=== PATIENT | female | born 1935 | race Caucasian/White ===

== ENCOUNTER 2017-09-07 21:39 | Emergency (ER) | payer MEDICARE ==
[~2017-09-07] VITALS: Ht 152.4 cm; Wt 74.4 kg
[~2017-09-07 21:39] MED LIST: AMOX1TAB11 PO; ATOR40TA59 PO; LEVO500T8 PO; METO50TA2 PO; OMEP40CA5 PO; PROAIR HFA8.5 GM IH
[2017-09-07 22:49] LABS: BASO # 0.1 x10^3/uL (0.0-0.2); BASO % 1 % (0-3); EOS % 2 % (0-3); HEMOGLOBIN 12.8 g/dL (12.0-15.5); LYMPH # 3.7 x10^3/uL (1.0-4.8); LYMPH % 38 % (24-48); MEAN CORPUSCULAR HEMOGLOBIN 28 pg (25-35); MEAN CORPUSCULAR HGB CONC 33 g/dL (31-37); MEAN CORPUSCULAR VOLUME 85 fL (79-100); MONO % 9 % (0-9); NEUT % 51 % (31-73); PLATELET COUNT 354 x10^3/uL (140-400); RED BLOOD COUNT 4.59 x10^6/uL (3.50-5.40); RED CELL DISTRIBUTION WIDTH 15.8 % (11.5-14.5); WHITE BLOOD COUNT 9.8 x10^3/uL (4.0-11.0)
[2017-09-07 23:07] LABS: CALCIUM 9.5 mg/dL (8.5-10.1); CREATININE 0.8 mg/dL (0.6-1.0); GFR 68.3
[2017-09-07 23:12] LABS: ALBUMIN 3.6 g/dL (3.4-5.0); ALBUMIN/GLOBULIN RATIO 0.9 (1.0-1.7); TOTAL BILIRUBIN 0.3 mg/dL (0.2-1.0); TOTAL PROTEIN 7.4 g/dL (6.4-8.2)
--- NOTE | 2017-09-08 00:12 | PHYS DOC ---
Past Medical History Past Medical History: GERD, High Cholesterol, Hypertension, Other Additional Past Medical Histor: mtv prolapse, melanoma Past Surgical History: Other Additional Past Surgical Histo: cataract, skin ca, hernia, polypectomy Alcohol Use: None Drug Use: None Adult General Chief Complaint Chief Complaint: HYPERTENSION HPI HPI Patient is a 82 year old female with history significant for hypertension presents to the ER today secondary to not feeling well. Patient reports that she hasn't been feeling well for approximately 4-5 days now. Patient reports that she's had headache, nausea, generalized weakness, decreased appetite for approximate 4 days now. Patient reports that she is supposed to be on metoprolol as well as losartan. Patient reports that she is not taking her losartan several month ago and her blood pressure reports he has been normal. After not feeling well the patient checked her blood pressure and she reports it was 210/100. At that point she came to the ER for further evaluation. Patient has any fevers shakes chills vomiting diarrhea chest pain shortness of breath. Patient has any weakness to her upper or lower extremity. Patient has any double or blurred vision. Patient has no focal symptoms at this time. Physical Exam Review of systems: Constitutional: Denies fever or chills Eyes: Denies change in visual acuity, redness, or eye pain HENT: Denies nasal congestion or sore throat Respiratory: Denies cough or shortness of breath All other systems were reviewed and found to be within normal limits, except as documented in this note. Physical exam: Constitutional: Well developed, well nourished, no acute distress, non-toxic appearance. HENT: Normocephalic, atraumatic, bilateral external ears normal, oropharynx moist, no oral exudates, nose normal. Eyes: PERRLA, EOMI, conjunctiva normal, no discharge. Neck: Normal range of motion, no tenderness, supple, no stridor. Cardiovascular:Heart rate regular rhythm, Lungs & Thorax: Bilateral breath sounds clear to auscultation Abdomen: Bowel sounds normal, soft, no tenderness, no masses, no pulsatile masses. Skin: Warm, dry, no erythema, no rash. Back: No tenderness, no CVA tenderness. Extremities: No tenderness, no cyanosis, no clubbing, ROM intact, no edema. Neurologic: Alert and oriented X 3, normal motor function, normal sensory function, no focal deficits noted. Psychologic: Affect normal, judgement normal, mood normal. Assessment and plan: This is an 82-year-old female who presents to the ER today secondary to an elevated blood pressure all she was at home. Patient reports she checked her blood pressure patient wasn't feeling well for approximately 3 or 4 days. Of note patient has been noncompliant with her losartan for several month now. Patient reports that her doctor started her on losartan secondary to her blood pressure being elevated. Patient reports that she did losartan for several month her blood pressure improved to she stopped taking. Patient reports after not taking her losartan her blood pressure has been stable for several months. Patient presents here today secondary to an elevated blood pressure of 210 or 100 home which she checked secondary to multiple vague symptoms including nausea , generalized weakness, headaches, decreased appetite. Patient's ER workup so far has been unremarkable. Patient's blood pressure currently is 200/84. Patient has taken her to losartan at home or any. Patient will be given her evening dose of metoprolol as well as dose of clonidine and will be discharged home to follow-up with her primary care physician on Monday to repeat her blood pressure and manage her medications further. Patient was instructed to return to the ER if she starts developing any chest pain, localized weakness, or any other concerning signs or symptoms. Patient currently reports that she feels well and feels reassured with the workup that we have done currently is requesting to be discharged home and feels comfortable with our plan as discussed. Current Medications Current Medications Current Medications Medications (Trade) Dose Ordered Sig/Ramona Start Time Stop Time Status Last Admin Dose Admin Clonidine HCl (Catapres) 0.1 mg 1X ONCE 09/08/17 00:15 09/08/17 00:16 DC Metoprolol Tartrate (Lopressor) 100 mg 1X ONCE 09/08/17 00:15 09/08/17 00:16 DC Allergies Allergies Allergies Coded Allergies Type Severity Reaction Last Updated Verified Sulfa (Sulfonamide Antibiotics) Allergy Unknown 09/07/17 Yes cyclobenzaprine Allergy Unknown 09/07/17 Yes meperidine Allergy Unknown 09/07/17 Yes morphine Allergy Unknown 09/07/17 Yes pregabalin Allergy Unknown 09/07/17 Yes Current Patient Data Vital Signs Vital Signs Date Time Temp Pulse Resp B/P (MAP) Pulse Ox O2 Delivery O2 Flow Rate FiO2 11/16/17 22:03 84 20 220/98 (138) 99 Room Air Lab Values Laboratory Tests Test 09/07/17 22:15 White Blood Count 9.8 x10^3/uL (4.0-11.0) Red Blood Count 4.59 x10^6/uL (3.50-5.40) Hemoglobin 12.8 g/dL (12.0-15.5) Hematocrit 39.0 % (36.0-47.0) Mean Corpuscular Volume 85 fL (79-100) Mean Corpuscular Hemoglobin 28 pg (25-35) Mean Corpuscular Hemoglobin Concent 33 g/dL (31-37) Red Cell Distribution Width 15.8 % (11.5-14.5) H Platelet Count 354 x10^3/uL (140-400) Neutrophils (%) (Auto) 51 % (31-73) Lymphocytes (%) (Auto) 38 % (24-48) Monocytes (%) (Auto) 9 % (0-9) Eosinophils (%) (Auto) 2 % (0-3) Basophils (%) (Auto) 1 % (0-3) Neutrophils # (Auto) 5.0 x10^3uL (1.8-7.7) Lymphocytes # (Auto) 3.7 x10^3/uL (1.0-4.8) Monocytes # (Auto) 0.9 x10^3/uL (0.0-1.1) Eosinophils # (Auto) 0.2 x10^3/uL (0.0-0.7) Basophils # (Auto) 0.1 x10^3/uL (0.0-0.2) Sodium Level 137 mmol/L (136-145) Potassium Level 4.0 mmol/L (3.5-5.1) Chloride Level 100 mmol/L (98-107) Carbon Dioxide Level 29 mmol/L (21-32) Anion Gap 8 (6-14) Blood Urea Nitrogen 10 mg/dL (7-20) Creatinine 0.8 mg/dL (0.6-1.0) Estimated GFR (Cockcroft-Gault) 68.3 BUN/Creatinine Ratio 13 (6-20) Glucose Level 109 mg/dL (70-99) H Calcium Level 9.5 mg/dL (8.5-10.1) Total Bilirubin 0.3 mg/dL (0.2-1.0) Aspartate Amino Transferase (AST) 19 U/L (15-37) Alanine Aminotransferase (ALT) 21 U/L (14-59) Alkaline Phosphatase 93 U/L (46-116) Troponin I Quantitative < 0.017 ng/mL (0.000-0.055) Total Protein 7.4 g/dL (6.4-8.2) Albumin 3.6 g/dL (3.4-5.0) Albumin/Globulin Ratio 0.9 (1.0-1.7) L Laboratory Tests 09/07/17 22:15 Laboratory Tests 09/07/17 22:15 EKG EKG [] Radiology/Procedures Radiology/Procedures [] Course & Med Decision Making Course & Med Decision Making Pertinent Labs and Imaging studies reviewed. (See chart for details) [] Dragon Disclaimer Dragon Disclaimer This electronic medical record was generated, in whole or in part, using a voice recognition dictation system. Departure Departure Impression: Primary Impression: Hypertension Disposition: 01 HOME, SELF-CARE Condition: IMPROVED Referrals: DAYDAY EAST MD (PCP) Patient Instructions: Hypertension Additional Instructions: Please take all your blood pressure medicines as directed. Please make an appointment to see her family doctor on Monday or Monday to reevaluate your blood pressure medications. Return the ER for any further problems or concerns. JEWELS AGUILAR MD Sep 08, 2017 00:12
[2017-09-08] MEDS ORDERED: METOPROLOL TART IMMED RELEASE 50 MG TABLET. PO ONE (00:15)
[2017-09-08] MEDS ORDERED: cloNIDine HCL 0.1 MG TABLET PO ONE (00:15)
[2017-09-08 00:23] VITALS: BP 207/85
--- NOTE | 2017-09-08 06:36 | EKG ---
[facility] [address] [place] [address] Test Date: 2017-09-07 Test Time: 22:35:41 Pat Name: ARMANDO NIELSON Department: Room: Gender: F Manager Creative: : 1935 Requested By: JEWELS AGUILAR Order Number: [id number] Reading MD: Juan Carbajal MD Measurements Intervals [place] Rate: 81 P: 39 MN: 158 QRS: -21 QRSD: 78 T: 17 QT: 380 QTc: 447 Interpretive Statements SINUS RHYTHM Electronically Signed On 09-11-2017 14:10:50 ZOO CARETAKER by Juan Carbajal MD
--- NOTE | 2017-09-08 07:55 | RAD ---
AP chest radiograph 09/07/2017 Clinical indication: Hypertension, dizziness. Comparison: Chest 04/26/2013 Findings: Heart size is upper limits of normal without pulmonary venous congestion. Calcified atheromatous disease of the thoracic aorta. Mild linear left basilar atelectasis or scarring. No pleural effusion, pneumothorax or focal consolidation. Impression: Heart size upper limits of normal without pulmonary edema or consolidating pneumonia.
== END 2017-09-08 00:52 | disposition home or self-care (01) ==
LOC: ER 21:39
DX: I10 Essential (primary) hypertension (principal); R53.1 Weakness; R63.0 Anorexia; K21.9 Gastro-esophageal reflux disease without esophagitis; E78.00 Pure hypercholesterolemia, unspecified; Z98.49 Cataract extraction status, unspecified eye; Z68.32 Body mass index [BMI] 32.0-32.9, adult; Z79.899 Other long term (current) drug therapy; Z91.19 Patient's noncompliance with other medical treatment and regimen; Z88.2 Allergy status to sulfonamides; Z88.8 Allergy status to other drugs, medicaments and biological substances; Z88.5 Allergy status to narcotic agent
CPT/HCPCS: 36415; 71010; 80053; 84484; 85025; 93005; 99285-25

== ENCOUNTER 2019-12-08 22:10 | Inpatient (IN) | payer MEDICARE ==
[~2019-12-08] VITALS: Ht 157.5 cm; Wt 70.4 kg
[~2019-12-08 22:10] MED LIST changes: +ALBU2.5V8 IH; -METO50TA2 PO; +METO50TA6 PO; +OMEP40CA45 PO; -OMEP40CA5 PO; -PROAIR HFA8.5 GM IH
[2019-12-09 00:49] LABS: BILIRUBIN,URINE NEGATIVE (NEG); CLARITY,URINE CLEAR; COLOR,URINE YELLOW; NITRITE,URINE NEGATIVE (NEG); PROTEIN,URINE NEGATIVE (NEG-TRACE); UROBILINOGEN,URINE 0.2 mg/dL (0.2 mg/dL)
[2019-12-09 00:51] LABS: BASO % 0 % (0-3); EOS % 0 % (0-3); HEMATOCRIT 39.4 % (36.0-47.0); HEMOGLOBIN 13.3 g/dL (12.0-15.5); LYMPH # 1.6 x10^3/uL (1.0-4.8); LYMPH % 19 % (24-48); MEAN CORPUSCULAR HEMOGLOBIN 28 pg (25-35); MEAN CORPUSCULAR HGB CONC 34 g/dL (31-37); MEAN CORPUSCULAR VOLUME 83 fL (79-100); MONO # 0.7 x10^3/uL (0.0-1.1); MONO % 8 % (0-9); NEUT # 6.2 x10^3/uL (1.8-7.7); NEUT % 73 % (31-73); PLATELET COUNT 278 x10^3/uL (140-400); RED BLOOD COUNT 4.77 x10^6/uL (3.50-5.40); RED CELL DISTRIBUTION WIDTH 15.1 % (11.5-14.5); WHITE BLOOD COUNT 8.5 x10^3/uL (4.0-11.0)
[2019-12-09 00:53] LABS: BACTERIA,URINE 0 /HPF (0-FEW); SQUAMOUS EPITHELIAL CELL,UR FEW /LPF; WBC,URINE 0 /HPF (0-4)
[2019-12-09] MEDS ORDERED: IPRATRPIUM/ALBUTEROL 0.5/2.5MG 3 ML NEBU. NEB ONE ×2 (01:00)
[2019-12-09 01:07] LABS: CREATININE 0.6 mg/dL (0.6-1.0); GFR 94.8; POTASSIUM 3.5 mmol/L (3.5-5.1)
[2019-12-09 01:13] LABS: ALBUMIN 3.3 g/dL (3.4-5.0); ALBUMIN/GLOBULIN RATIO 0.8 (1.0-1.7); TOTAL BILIRUBIN 0.4 mg/dL (0.2-1.0); TOTAL PROTEIN 7.6 g/dL (6.4-8.2)
--- NOTE | 2019-12-09 01:41 | EKG ---
[facility] [address] [place] [address] Test Date: 2019-12-09 Test Time: 01:00:39 Pat Name: ARMANDO NIELSON Department: Room: Gender: F Spectroscopist: : 1935 Requested By: LUANN FERNANDEZ Order Number: [id number] Reading MD: Measurements Intervals [place] Rate: 106 P: 90 NE: 158 QRS: -30 QRSD: 74 T: 6 QT: 384 QTc: 512 Interpretive Statements SINUS TACHYCARDIA VENTRICULAR PREMATURE COMPLEX(ES) ABNORMAL LEFT AXIS DEVIATION R-S TRANSITION ZONE IN V LEADS DISPLACED TO THE LEFT LEFT ANTERIOR FASCICULAR BLOCK ABNORMAL ECG RI6.01 No previous ECG available for comparison
[2019-12-09] MEDS ORDERED: ONDANSETRON PF 4 MG/2 ML VIAL. IVP ONE (02:00)
--- NOTE | 2019-12-09 02:18 | PHYS DOC ---
Past Medical History Past Medical History: Hypertension Additional Past Medical Histor: hyperlipidemia, mitral valve prolapse Past Surgical History: Cholecystectomy Additional Past Surgical Histo: hernia repair Smoking Status: Never Smoker Alcohol Use: None Drug Use: None Adult General Chief Complaint Chief Complaint: SHORTNESS OF BREATH HPI HPI 84 yo female presents to the ER with complaints of SOB/cough/wheeze. Patient states she was seen by PCP on Monday, provided mucinex and antihistamine. She states she was then seen on 2/ continued symptoms. Patient states she felt worse at that time she was seen in urgent care and diagnosed with the flu. She's been on Tamiflu since that time. She describes increased cough, clear sputum production. Denies any diarrhea or vomiting however has had nausea. She states she's been able take oral intake however less of an appetite. She presents tonight given her continued symptoms, shortness of breath, wheeze. Nothing makes her symptoms worse, nothing makes her symptoms better. Review of Systems Review of Systems Constitutional: chills HENT: cough/SOB Cardiovascular: No additional information not addressed in HPI [] GI: Denies abdominal pain, + nausea, no vomiting, bloody stools or diarrhea [] Musculoskeletal: Denies back pain or joint pain [] Integument: Denies rash or skin lesions [] Neurologic: Denies headache, focal weakness or sensory changes [] All other systems were reviewed and found to be within normal limits, except as documented in this note. Current Medications Current Medications Current Medications Medications (Trade) Dose Ordered Sig/Ramona Start Time Stop Time Status Last Admin Dose Admin Albuterol/ Ipratropium (Duoneb) 3 ml 1X ONCE 12/09/19 01:00 12/09/19 01:01 DC 12/09/19 00:49 3 ML Levofloxacin/ Dextrose 150 ml @ 100 mls/hr 1X ONCE 12/09/19 02:00 12/09/19 03:29 12/09/19 01:44 100 MLS/HR Ondansetron HCl (Zofran) 4 mg 1X ONCE 12/09/19 02:00 12/09/19 02:01 DC 12/09/19 01:44 4 MG Allergies Allergies Allergies Coded Allergies Type Severity Reaction Last Updated Verified Sulfa (Sulfonamide Antibiotics) Allergy Intermediate 12/09/19 Yes cyclobenzaprine Allergy Intermediate 12/09/19 Yes meperidine Allergy Intermediate 12/09/19 Yes morphine Allergy Intermediate 12/09/19 Yes pregabalin Allergy Intermediate 12/09/19 Yes Physical Exam Physical Exam Constitutional: Well developed, well nourished, mild resp distress, non-toxic appearance. [] Neck: Normal range of motion, no tenderness, supple, no stridor. [] Cardiovascular: Tachycardia Lungs & Thorax: Coarse BS, exp wheeze Abdomen: Bowel sounds normal, soft, no tenderness, no masses, no pulsatile masses. [] Skin: Warm, dry, no erythema, no rash. [] Back: No tenderness, no CVA tenderness. [] Extremities: No tenderness, no edema. [] Neurologic: Alert and oriented X 3, no focal deficits noted. [] Psychologic: Affect normal, judgement normal, mood normal. [] Current Patient Data Vital Signs Vital Signs Date Time Temp Pulse Resp B/P (MAP) Pulse Ox O2 Delivery O2 Flow Rate FiO2 12/09/19 00:49 96 Room Air 12/08/19 23:37 98.7 94 16 218/95 (136) 98.7 Lab Values Laboratory Tests Test 12/08/19 23:40 12/09/19 00:35 White Blood Count 8.5 x10^3/uL (4.0-11.0) Red Blood Count 4.77 x10^6/uL (3.50-5.40) Hemoglobin 13.3 g/dL (12.0-15.5) Hematocrit 39.4 % (36.0-47.0) Mean Corpuscular Volume 83 fL (79-100) Mean Corpuscular Hemoglobin 28 pg (25-35) Mean Corpuscular Hemoglobin Concent 34 g/dL (31-37) Red Cell Distribution Width 15.1 % (11.5-14.5) H Platelet Count 278 x10^3/uL (140-400) Neutrophils (%) (Auto) 73 % (31-73) Lymphocytes (%) (Auto) 19 % (24-48) L Monocytes (%) (Auto) 8 % (0-9) Eosinophils (%) (Auto) 0 % (0-3) Basophils (%) (Auto) 0 % (0-3) Neutrophils # (Auto) 6.2 x10^3/uL (1.8-7.7) Lymphocytes # (Auto) 1.6 x10^3/uL (1.0-4.8) Monocytes # (Auto) 0.7 x10^3/uL (0.0-1.1) Eosinophils # (Auto) 0.0 x10^3/uL (0.0-0.7) Basophils # (Auto) 0.0 x10^3/uL (0.0-0.2) Sodium Level 132 mmol/L (136-145) L Potassium Level 3.5 mmol/L (3.5-5.1) Chloride Level 97 mmol/L (98-107) L Carbon Dioxide Level 27 mmol/L (21-32) Anion Gap 8 (6-14) Blood Urea Nitrogen 5 mg/dL (7-20) L Creatinine 0.6 mg/dL (0.6-1.0) Estimated GFR (Cockcroft-Gault) 94.8 BUN/Creatinine Ratio 8 (6-20) Glucose Level 125 mg/dL (70-99) H Lactic Acid Level 0.9 mmol/L (0.4-2.0) Calcium Level 9.0 mg/dL (8.5-10.1) Total Bilirubin 0.4 mg/dL (0.2-1.0) Aspartate Amino Transferase (AST) 23 U/L (15-37) Alanine Aminotransferase (ALT) 31 U/L (14-59) Alkaline Phosphatase 71 U/L (46-116) Troponin I Quantitative < 0.017 ng/mL (0.000-0.055) FU-Mjg-I-Type Natriuretic Peptide 424 pg/mL (0-449) Total Protein 7.6 g/dL (6.4-8.2) Albumin 3.3 g/dL (3.4-5.0) L Albumin/Globulin Ratio 0.8 (1.0-1.7) L Urine Collection Type Unknown Urine Color Yellow Urine Clarity Clear Urine pH 7.0 Urine Specific [place] 1.010 Urine Protein Negative mg/dL (NEG-TRACE) Urine Glucose (UA) Negative mg/dL (NEG) Urine Ketones (Stick) 15 mg/dL (NEG) Urine Blood Negative (NEG) Urine Nitrite Negative (NEG) Urine Bilirubin Negative (NEG) Urine Urobilinogen Dipstick 0.2 mg/dL (0.2 mg/dL) Urine Leukocyte Esterase Negative (NEG) Urine RBC 1-2 /HPF (0-2) Urine WBC 0 /HPF (0-4) Urine Squamous Epithelial Cells Few /LPF Urine Bacteria 0 /HPF (0-FEW) Urine Mucus Slight /LPF Laboratory Tests 12/08/19 23:40 Laboratory Tests 12/08/19 23:40 EKG EKG [] Radiology/Procedures Radiology/Procedures Chest wet read with evidence of right lower lobe consolidation[] Course & Med Decision Making Course & Med Decision Making Pertinent Labs and Imaging studies reviewed. (See chart for details) []84 yo female presents to the ER with complaints of SOB/cough/wheeze. Patient states she was seen by PCP on Monday, provided mucinex and antihistamine. She states she was then seen on 11/24 continued symptoms. Patient states she felt worse at that time she was seen in urgent care and diagnosed with the flu. She's been on Tamiflu since that time. She describes increased cough, clear sputum production. Denies any diarrhea or vomiting however has had nausea. She states she's been able take oral intake however less of an appetite. She presents tonight given her continued symptoms, shortness of breath, wheeze. Nothing makes her symptoms worse, nothing makes her symptoms better. Arrival patient with tachycardia, expiratory wheeze, coarse breath sounds appreciated throughout. Patient provided with IV fluids, DuoNeb with some improvement. Patient with improvement in wheeze however did have oxygen dip to 88% at rest requiring O2 supplementation Levaquin IV provided cultures obtained - lactic acid within normal limits Admit for observation Dragon Disclaimer Dragon Disclaimer This electronic medical record was generated, in whole or in part, using a voice recognition dictation system. Departure Departure Impression: Primary Impression: CAP (community acquired pneumonia) Additional Impression: Hypoxia Disposition: ADMITTED INPATIENT Admitting Physician: PERFECTO Condition: STABLE Referrals: DAYDAY EAST MD (PCP) Problem Qualifiers Primary Impression: CAP (community acquired pneumonia) Laterality: right Lung location: lower lobe of lung Qualified Codes: J18.9 - Pneumonia, unspecified organism LUANN FERNANDEZ MD Dec 09, 2019 02:18
[2019-12-09] MEDS ORDERED: ACETAMINOPHEN 325 MG TABLET. PO PRN ×2 (02:30→08:30)
[2019-12-09] MEDS ORDERED: ONDANSETRON PF 4 MG/2 ML VIAL. IV PRN ×2 (02:30→08:30)
--- NOTE | 2019-12-09 08:19 | RAD ---
EXAM: PORTABLE CHEST 1V INDICATION: Chest pain. TECHNIQUE: Single portable upright AP view COMPARISON: 09/07/2017 chest x-ray FINDINGS: The heart size is upper normal.. The great vessels appear unremarkable. There is no hilar or mediastinal mass. The lungs show mild prominence of the pulmonary interstitium with borderline cephalization of the vessels.. There is no pleural effusion or pneumothorax. There are no significant osseous abnormalities. IMPRESSION: Upper normal heart size with mild pulmonary vascular congestion. Electronically signed by: Tyesha Cabrera MD (12/09/2019 8:16 AM) [id number]
[2019-12-09] MEDS ORDERED: ZOLPIDEM 5 MG TABLET. PO PRN (08:30)
[2019-12-09] MEDS ORDERED: ALBUTEROL SULFATE 2.5 MG/3 ML NEBU. INH SCH (08:30)
[2019-12-09] MEDS ORDERED: guaiFENesin ORAL 200 MG/10 ML LIQUID. PO PRN (08:30)
[2019-12-09] MEDS ORDERED: LORazepam 0.5 MG TABLET PO PRN (08:30)
[2019-12-09] MEDS ORDERED: ALBUTEROL SULFATE 2.5 MG/3 ML NEBU. NEB PRN (08:30)
[2019-12-09] MEDS: IPRATRPIUM/ALBUTEROL 0.5/2.5MG 3 ML NEBU. NEB SCH ×4 (08:35→20:16)
[2019-12-09] MEDS: PANTOPRAZOLE 40 MG TABLET.DR. PO SCH (09:49)
[2019-12-09] MEDS: METOPROLOL TART IMMED RELEASE 50 MG TABLET. PO SCH ×2 (09:49→20:15)
[2019-12-09] MEDS: IV NORMAL SALINE 1000ML BAG 1,000 ML IV SCH ×2 (09:55→18:27)
[2019-12-09] MEDS: ALBUTEROL SULFATE 2.5 MG/3 ML NEBU. INH SCH ×4 (12:00→22:52)
[2019-12-09] MEDS: ENOXAPARIN 40 MG/0.4 ML SYRINGE. SQ SCH (14:33)
[2019-12-09 15:20] VITALS: BP 172/64
--- NOTE | 2019-12-09 16:32 | PDOC1 ---
History and Physical Date of Admission Date of Admission 12/09/2019 Identification/Chief Complaint Chief Complaint I dont feel well Source Source: Chart review, Patient History of Present Illness History of Present Illness Patient is an 84-year-old female with past medical history of essential hypertension dyslipidemia and mitral valve prolapse who was seen in an out patient setting last Monday. The patient thought that she was having the flu nevertheless her physician attributed her symptoms to allergies and provided these next an antihistamine medications. Later that week on she saw another urgent care and she was tested for the flu when she became positive. She was given a course of Tamiflu but unfortunately the patient continues to have cough clear sputum production no pleurisy has been reported no fever or chills were reported either she denies any diarrhea no syncopal episodes no headache generalized malaise is better according to the patient, she has had decreased appetite and decreased oral intake as a consequence of her acute illness. Due to the continued symptoms she decided to come to the emergency department due to shortness of breath and she thought she was wheezing as well. I have discussed the results of her current testing, according to the patient she was told she had pneumonia but I have reassured her that there is no evidence on x-ray of a pneumonic process in given her history most likely she is suffering from a post viral syndrome with continued cough and discomfort. Reassurance has been provided plan of care explaining detail all of her concerns were addressed to the best of my abilities Past Medical History Cardiovascular: HTN, Hyperlipidemia Current Problem List Problem List Problems Medical Problems: (1) CAP (community acquired pneumonia) Status: Acute (2) Hypoxia Status: Acute Current Medications Current Medications Current Medications Medications (Trade) Dose Ordered Sig/Ramona Start Time Stop Time Status Last Admin Dose Admin Acetaminophen (Tylenol) 650 mg PRN Q4HRS PRN 12/09/19 08:30 Albuterol Sulfate (Ventolin Neb Soln) 8.5 mg Q4HRS 12/09/19 12:00 Albuterol/ Ipratropium (Duoneb) 3 ml RTQID 12/09/19 08:00 12/10/19 07:59 12/09/19 12:31 3 ML Atorvastatin Calcium (Lipitor) 40 mg QHS 12/09/19 21:00 Enoxaparin Sodium (Lovenox 40mg Syringe) 40 mg Q24H 12/09/19 14:00 12/09/19 14:33 40 MG Guaifenesin (Mucinex) 600 mg BID 12/09/19 09:00 12/09/19 09:49 600 MG Guaifenesin (Robitussin) 200 mg PRN Q4HRS PRN 12/09/19 08:30 Levofloxacin/ Dextrose 150 ml @ 100 mls/hr 1X ONCE 12/09/19 02:00 12/09/19 03:29 DC 12/09/19 01:44 100 MLS/HR Lorazepam (Ativan) 0.5 mg PRN Q4HRS PRN 12/09/19 08:30 Metoprolol Tartrate (Lopressor) 50 mg BID 12/09/19 09:00 12/09/19 09:49 50 MG Ondansetron HCl (Zofran) 4 mg PRN Q4HRS PRN 12/09/19 08:30 Pantoprazole Sodium (Protonix) 40 mg DAILYAC 12/09/19 09:00 12/09/19 09:49 40 MG Sodium Chloride 1,000 ml @ 100 mls/hr Q10H 12/09/19 08:27 12/10/19 04:26 12/09/19 09:55 100 MLS/HR Zolpidem Tartrate (Ambien) 5 mg PRN QHS PRN 12/09/19 08:30 Allergies Allergies Allergies Coded Allergies Type Severity Reaction Last Updated Verified Sulfa (Sulfonamide Antibiotics) Allergy Intermediate 12/09/19 Yes cyclobenzaprine Allergy Intermediate 12/09/19 Yes meperidine Allergy Intermediate 12/09/19 Yes morphine Allergy Intermediate 12/09/19 Yes pregabalin Allergy Intermediate 12/09/19 Yes ROS Review of System CONSTITUTIONAL: No fever or chills EYES: No recent changes SKIN: No rash or itching CARDIOVASCULAR: No chest pain, syncope, palpitations, or edema RESPIRATORY: No SOB or cough GASTROINTESTINAL: No nausea, vomiting or abdominal pain NEUROLOGICAL: No headaches or weakness ENDOCRINE: No cold or heat intolerance GENITOURINARY: No urgency or frequency of urination MUSCULOSKELETAL: No back pain or joint pain LYMPHATICS: No enlarged lymph nodes PSYCHIATRIC: No anxiety or depression Physical Exam Physical Exam Gen.: well-developed well-nourished in no apparent distress Head: Normal shape atraumatic Eyes: Pupils equal reactive to light and accommodation, normal conjunctivae and lids Ears: Normal shape Nose: Normal shape no trauma Mouth: No exudates of the back of throat no thrush no lesions Neck: Supple no JVD no carotid bruit or lymphadenopathy no thyromegaly Chest: Lungs clear to auscultation with good inspiratory effort no crackles rales or rhonchi Cardiovascular: S1-S2 regular rhythm 2/6 systolic murmur with no radiation no gallops or rubs Abdomen: Bowel sounds present soft nontender no hepatosplenomegaly appreciated sign Extremities: No clubbing no cyanosis no edema peripheral pulses palpated bilaterally Neurological: Alert awake oriented in person time place and situation, cranial nerves II through XII intact, no motor or sensory deficits appreciated Psych: Appropriate mood, cooperative Vitals Vitals Vital Signs Date Time Temp Pulse Resp B/P (MAP) Pulse Ox O2 Delivery O2 Flow Rate FiO2 12/09/19 15:20 98.2 89 172/64 (100) 95 Room Air 98.2 12/09/19 12:33 2.0 12/09/19 11:13 16 Labs Labs Laboratory Tests Test 12/08/19 23:40 12/09/19 00:35 White Blood Count 8.5 x10^3/uL (4.0-11.0) Red Blood Count 4.77 x10^6/uL (3.50-5.40) Hemoglobin 13.3 g/dL (12.0-15.5) Hematocrit 39.4 % (36.0-47.0) Mean Corpuscular Volume 83 fL (79-100) Mean Corpuscular Hemoglobin 28 pg (25-35) Mean Corpuscular Hemoglobin Concent 34 g/dL (31-37) Red Cell Distribution Width 15.1 % (11.5-14.5) Platelet Count 278 x10^3/uL (140-400) Neutrophils (%) (Auto) 73 % (31-73) Lymphocytes (%) (Auto) 19 % (24-48) Monocytes (%) (Auto) 8 % (0-9) Eosinophils (%) (Auto) 0 % (0-3) Basophils (%) (Auto) 0 % (0-3) Neutrophils # (Auto) 6.2 x10^3/uL (1.8-7.7) Lymphocytes # (Auto) 1.6 x10^3/uL (1.0-4.8) Monocytes # (Auto) 0.7 x10^3/uL (0.0-1.1) Eosinophils # (Auto) 0.0 x10^3/uL (0.0-0.7) Basophils # (Auto) 0.0 x10^3/uL (0.0-0.2) Sodium Level 132 mmol/L (136-145) Potassium Level 3.5 mmol/L (3.5-5.1) Chloride Level 97 mmol/L (98-107) Carbon Dioxide Level 27 mmol/L (21-32) Anion Gap 8 (6-14) Blood Urea Nitrogen 5 mg/dL (7-20) Creatinine 0.6 mg/dL (0.6-1.0) Estimated GFR (Cockcroft-Gault) 94.8 BUN/Creatinine Ratio 8 (6-20) Glucose Level 125 mg/dL (70-99) Lactic Acid Level 0.9 mmol/L (0.4-2.0) Calcium Level 9.0 mg/dL (8.5-10.1) Total Bilirubin 0.4 mg/dL (0.2-1.0) Aspartate Amino Transf (AST/SGOT) 23 U/L (15-37) Alanine Aminotransferase (ALT/SGPT) 31 U/L (14-59) Alkaline Phosphatase 71 U/L (46-116) Troponin I Quantitative < 0.017 ng/mL (0.000-0.055) OY-Jer-U-Type Natriuretic Peptide 424 pg/mL (0-449) Total Protein 7.6 g/dL (6.4-8.2) Albumin 3.3 g/dL (3.4-5.0) Albumin/Globulin Ratio 0.8 (1.0-1.7) Procalcitonin < 0.10 ng/mL (0.00-0.10) Urine Collection Type Unknown Urine Color Yellow Urine Clarity Clear Urine pH 7.0 Urine Specific [place] 1.010 Urine Protein Negative mg/dL (NEG-TRACE) Urine Glucose (UA) Negative mg/dL (NEG) Urine Ketones (Stick) 15 mg/dL (NEG) Urine Blood Negative (NEG) Urine Nitrite Negative (NEG) Urine Bilirubin Negative (NEG) Urine Urobilinogen Dipstick 0.2 mg/dL (0.2 mg/dL) Urine Leukocyte Esterase Negative (NEG) Urine RBC 1-2 /HPF (0-2) Urine WBC 0 /HPF (0-4) Urine Squamous Epithelial Cells Few /LPF Urine Bacteria 0 /HPF (0-FEW) Urine Mucus Slight /LPF Laboratory Tests Test 12/08/19 23:40 12/09/19 00:35 White Blood Count 8.5 x10^3/uL (4.0-11.0) Red Blood Count 4.77 x10^6/uL (3.50-5.40) Hemoglobin 13.3 g/dL (12.0-15.5) Hematocrit 39.4 % (36.0-47.0) Mean Corpuscular Volume 83 fL (79-100) Mean Corpuscular Hemoglobin 28 pg (25-35) Mean Corpuscular Hemoglobin Concent 34 g/dL (31-37) Red Cell Distribution Width 15.1 % (11.5-14.5) Platelet Count 278 x10^3/uL (140-400) Neutrophils (%) (Auto) 73 % (31-73) Lymphocytes (%) (Auto) 19 % (24-48) Monocytes (%) (Auto) 8 % (0-9) Eosinophils (%) (Auto) 0 % (0-3) Basophils (%) (Auto) 0 % (0-3) Neutrophils # (Auto) 6.2 x10^3/uL (1.8-7.7) Lymphocytes # (Auto) 1.6 x10^3/uL (1.0-4.8) Monocytes # (Auto) 0.7 x10^3/uL (0.0-1.1) Eosinophils # (Auto) 0.0 x10^3/uL (0.0-0.7) Basophils # (Auto) 0.0 x10^3/uL (0.0-0.2) Sodium Level 132 mmol/L (136-145) Potassium Level 3.5 mmol/L (3.5-5.1) Chloride Level 97 mmol/L (98-107) Carbon Dioxide Level 27 mmol/L (21-32) Anion Gap 8 (6-14) Blood Urea Nitrogen 5 mg/dL (7-20) Creatinine 0.6 mg/dL (0.6-1.0) Estimated GFR (Cockcroft-Gault) 94.8 BUN/Creatinine Ratio 8 (6-20) Glucose Level 125 mg/dL (70-99) Lactic Acid Level 0.9 mmol/L (0.4-2.0) Calcium Level 9.0 mg/dL (8.5-10.1) Total Bilirubin 0.4 mg/dL (0.2-1.0) Aspartate Amino Transf (AST/SGOT) 23 U/L (15-37) Alanine Aminotransferase (ALT/SGPT) 31 U/L (14-59) Alkaline Phosphatase 71 U/L (46-116) Troponin I Quantitative < 0.017 ng/mL (0.000-0.055) ZE-Sbh-H-Type Natriuretic Peptide 424 pg/mL (0-449) Total Protein 7.6 g/dL (6.4-8.2) Albumin 3.3 g/dL (3.4-5.0) Albumin/Globulin Ratio 0.8 (1.0-1.7) Procalcitonin < 0.10 ng/mL (0.00-0.10) Urine Collection Type Unknown Urine Color Yellow Urine Clarity Clear Urine pH 7.0 Urine Specific [place] 1.010 Urine Protein Negative mg/dL (NEG-TRACE) Urine Glucose (UA) Negative mg/dL (NEG) Urine Ketones (Stick) 15 mg/dL (NEG) Urine Blood Negative (NEG) Urine Nitrite Negative (NEG) Urine Bilirubin Negative (NEG) Urine Urobilinogen Dipstick 0.2 mg/dL (0.2 mg/dL) Urine Leukocyte Esterase Negative (NEG) Urine RBC 1-2 /HPF (0-2) Urine WBC 0 /HPF (0-4) Urine Squamous Epithelial Cells Few /LPF Urine Bacteria 0 /HPF (0-FEW) Urine Mucus Slight /LPF VTE Prophylaxis Ordered VTE Prophylaxis Devices: No VTE Pharmacological Prophylaxi: Yes Assessment/Plan Assessment/Plan Acute viral infection Persistent cough Hyponatremia most likely secondary to low effective circulatory volume Hypokalemia Hypoxia resolved History of influenza A status post Tamiflu treatment Plan: We'll check a pro-calcitonin to seal that there is no evidence of an acute bacterial infection, we'll check Legionella antigen for completion Hold off on further antibiotic therapy Home medications once available for review IV fluid resuscitation Further recommendations based on the clinical course Reassess in the a.m. Hopefully Dismissed in the a.m. DVT prophylaxis with Lovenox FARELENA,MG Haq MD Dec 09, 2019 16:32
[2019-12-09] MEDS: ATORVASTATIN CALCIUM 40 MG TABLET. PO SCH (20:15)
[2019-12-09 20:16] VITALS: BP 177/73
[2019-12-09 23:02] VITALS: BP 182/81
[2019-12-10] MEDS: ALBUTEROL SULFATE 2.5 MG/3 ML NEBU. INH SCH ×2 (02:54→08:12)
[2019-12-10 03:45] VITALS: BP 173/70
[2019-12-10 05:25] LABS: BASO % 0 % (0-3); EOS % 0 % (0-3); HEMATOCRIT 36.7 % (36.0-47.0); HEMOGLOBIN 12.2 g/dL (12.0-15.5); LYMPH # 1.6 x10^3/uL (1.0-4.8); LYMPH % 29 % (24-48); MEAN CORPUSCULAR HEMOGLOBIN 28 pg (25-35); MEAN CORPUSCULAR HGB CONC 33 g/dL (31-37); MEAN CORPUSCULAR VOLUME 83 fL (79-100); MONO # 0.7 x10^3/uL (0.0-1.1); MONO % 12 % (0-9); NEUT # 3.4 x10^3/uL (1.8-7.7); NEUT % 59 % (31-73); PLATELET COUNT 271 x10^3/uL (140-400); RED BLOOD COUNT 4.43 x10^6/uL (3.50-5.40); RED CELL DISTRIBUTION WIDTH 15.5 % (11.5-14.5); WHITE BLOOD COUNT 5.7 x10^3/uL (4.0-11.0)
[2019-12-10 05:41] LABS: ALBUMIN 2.7 g/dL (3.4-5.0); ALBUMIN/GLOBULIN RATIO 0.7 (1.0-1.7); CALCIUM 8.6 mg/dL (8.5-10.1); CREATININE 0.6 mg/dL (0.6-1.0); GFR 94.8; POTASSIUM 3.4 mmol/L (3.5-5.1); TOTAL BILIRUBIN 0.4 mg/dL (0.2-1.0); TOTAL PROTEIN 6.4 g/dL (6.4-8.2)
[2019-12-10 07:00] VITALS: BP 187/87
[2019-12-10] MEDS: PANTOPRAZOLE 40 MG TABLET.DR. PO SCH (09:13)
[2019-12-10] MEDS: METOPROLOL TART IMMED RELEASE 50 MG TABLET. PO SCH ×2 (09:13→20:32)
--- NOTE | 2019-12-10 09:24 | NUR ---
IP: Pt is Influenza + requiring droplet precautions for 7 days and 24 hours without a fever, whichever is longest.
[2019-12-10] MEDS ORDERED: AMLO2.5T5 PO (09:57)
[2019-12-10 11:00] VITALS: BP 162/71
[2019-12-10] MEDS: amLODIPine BESYLATE 5 MG TABLET PO SCH (11:41)
[2019-12-10] MEDS ORDERED: ALBUTEROL SULFATE 2.5 MG/3 ML NEBU. INH PRN (11:45)
[2019-12-10] MEDS: IPRATRPIUM/ALBUTEROL 0.5/2.5MG 3 ML NEBU. NEB SCH ×3 (11:49→20:03)
--- NOTE | 2019-12-10 13:50 | NUR ---
SS following for discharge planning. SS reviewed pt chart. Pt is from home and is currently on room air. SS will continue to follow for discharge planning.
[2019-12-10 15:00] VITALS: BP 143/51
[2019-12-10] MEDS: ENOXAPARIN 40 MG/0.4 ML SYRINGE. SQ SCH (16:27)
--- NOTE | 2019-12-10 16:45 | PDOC ---
PROGRESS NOTES Chief Complaint Chief Complaint Acute viral infection Persistent cough Hyponatremia most likely secondary to low effective circulatory volume Hypokalemia Hypoxia resolved History of influenza A status post Tamiflu treatment Plan, continue to encourage flutter valve Continue home medications Discontinue fluid resuscitation Encourage more activity today and reassess in the morning Hopefully will be able to discharge in the a.m. DVT prophylaxis Lovenox History of Present Illness History of Present Illness Patient with no acute events reported overnight. The patient feels much better but still complaining of congestion and short of breath. Coughing spells have improved and her physical exam is improved as well reassurance provided Vitals Vitals Vital Signs Date Time Temp Pulse Resp B/P (MAP) Pulse Ox O2 Delivery O2 Flow Rate FiO2 12/10/19 16:32 96 Room Air 12/10/19 15:00 97.3 74 18 143/51 (81) 97.3 12/09/19 19:30 2.0 Physical Exam Physical Exam Gen.: well-developed well-nourished in no apparent distress Head: Normal shape atraumatic Eyes: Pupils equal reactive to light and accommodation, normal conjunctivae and lids Ears: Normal shape Nose: Normal shape no trauma Mouth: No exudates of the back of throat no thrush no lesions Neck: Supple no JVD no carotid bruit or lymphadenopathy no thyromegaly Chest: Lungs clear to auscultation with good inspiratory effort no crackles rales or rhonchi Cardiovascular: S1-S2 regular rhythm 2/6 systolic murmur with no radiation no gallops or rubs Abdomen: Bowel sounds present soft nontender no hepatosplenomegaly appreciated sign Extremities: No clubbing no cyanosis no edema peripheral pulses palpated bilaterally Neurological: Alert awake oriented in person time place and situation, cranial nerves II through XII intact, no motor or sensory deficits appreciated Psych: Appropriate mood, cooperative Labs LABS Laboratory Tests Test 12/10/19 04:50 White Blood Count 5.7 x10^3/uL (4.0-11.0) Red Blood Count 4.43 x10^6/uL (3.50-5.40) Hemoglobin 12.2 g/dL (12.0-15.5) Hematocrit 36.7 % (36.0-47.0) Mean Corpuscular Volume 83 fL (79-100) Mean Corpuscular Hemoglobin 28 pg (25-35) Mean Corpuscular Hemoglobin Concent 33 g/dL (31-37) Red Cell Distribution Width 15.5 % (11.5-14.5) Platelet Count 271 x10^3/uL (140-400) Neutrophils (%) (Auto) 59 % (31-73) Lymphocytes (%) (Auto) 29 % (24-48) Monocytes (%) (Auto) 12 % (0-9) Eosinophils (%) (Auto) 0 % (0-3) Basophils (%) (Auto) 0 % (0-3) Neutrophils # (Auto) 3.4 x10^3/uL (1.8-7.7) Lymphocytes # (Auto) 1.6 x10^3/uL (1.0-4.8) Monocytes # (Auto) 0.7 x10^3/uL (0.0-1.1) Eosinophils # (Auto) 0.0 x10^3/uL (0.0-0.7) Basophils # (Auto) 0.0 x10^3/uL (0.0-0.2) Sodium Level 137 mmol/L (136-145) Potassium Level 3.4 mmol/L (3.5-5.1) Chloride Level 101 mmol/L (98-107) Carbon Dioxide Level 28 mmol/L (21-32) Anion Gap 8 (6-14) Blood Urea Nitrogen 2 mg/dL (7-20) Creatinine 0.6 mg/dL (0.6-1.0) Estimated GFR (Cockcroft-Gault) 94.8 BUN/Creatinine Ratio 3 (6-20) Glucose Level 117 mg/dL (70-99) Calcium Level 8.6 mg/dL (8.5-10.1) Total Bilirubin 0.4 mg/dL (0.2-1.0) Aspartate Amino Transf (AST/SGOT) 23 U/L (15-37) Alanine Aminotransferase (ALT/SGPT) 19 U/L (14-59) Alkaline Phosphatase 59 U/L (46-116) Total Protein 6.4 g/dL (6.4-8.2) Albumin 2.7 g/dL (3.4-5.0) Albumin/Globulin Ratio 0.7 (1.0-1.7) Assessment and Plan Assessmemt and Plan Problems Medical Problems: (1) CAP (community acquired pneumonia) Status: Acute (2) Hypoxia Status: Acute Comment Review of Relevant I have reviewed the following items devin (where applicable) has been applied. Labs Laboratory Tests Test 12/08/19 23:40 12/09/19 00:35 12/10/19 04:50 White Blood Count 8.5 x10^3/uL (4.0-11.0) 5.7 x10^3/uL (4.0-11.0) Red Blood Count 4.77 x10^6/uL (3.50-5.40) 4.43 x10^6/uL (3.50-5.40) Hemoglobin 13.3 g/dL (12.0-15.5) 12.2 g/dL (12.0-15.5) Hematocrit 39.4 % (36.0-47.0) 36.7 % (36.0-47.0) Mean Corpuscular Volume 83 fL (79-100) 83 fL (79-100) Mean Corpuscular Hemoglobin 28 pg (25-35) 28 pg (25-35) Mean Corpuscular Hemoglobin Concent 34 g/dL (31-37) 33 g/dL (31-37) Red Cell Distribution Width 15.1 % (11.5-14.5) 15.5 % (11.5-14.5) Platelet Count 278 x10^3/uL (140-400) 271 x10^3/uL (140-400) Neutrophils (%) (Auto) 73 % (31-73) 59 % (31-73) Lymphocytes (%) (Auto) 19 % (24-48) 29 % (24-48) Monocytes (%) (Auto) 8 % (0-9) 12 % (0-9) Eosinophils (%) (Auto) 0 % (0-3) 0 % (0-3) Basophils (%) (Auto) 0 % (0-3) 0 % (0-3) Neutrophils # (Auto) 6.2 x10^3/uL (1.8-7.7) 3.4 x10^3/uL (1.8-7.7) Lymphocytes # (Auto) 1.6 x10^3/uL (1.0-4.8) 1.6 x10^3/uL (1.0-4.8) Monocytes # (Auto) 0.7 x10^3/uL (0.0-1.1) 0.7 x10^3/uL (0.0-1.1) Eosinophils # (Auto) 0.0 x10^3/uL (0.0-0.7) 0.0 x10^3/uL (0.0-0.7) Basophils # (Auto) 0.0 x10^3/uL (0.0-0.2) 0.0 x10^3/uL (0.0-0.2) Sodium Level 132 mmol/L (136-145) 137 mmol/L (136-145) Potassium Level 3.5 mmol/L (3.5-5.1) 3.4 mmol/L (3.5-5.1) Chloride Level 97 mmol/L (98-107) 101 mmol/L (98-107) Carbon Dioxide Level 27 mmol/L (21-32) 28 mmol/L (21-32) Anion Gap 8 (6-14) 8 (6-14) Blood Urea Nitrogen 5 mg/dL (7-20) 2 mg/dL (7-20) Creatinine 0.6 mg/dL (0.6-1.0) 0.6 mg/dL (0.6-1.0) Estimated GFR (Cockcroft-Gault) 94.8 94.8 BUN/Creatinine Ratio 8 (6-20) 3 (6-20) Glucose Level 125 mg/dL (70-99) 117 mg/dL (70-99) Lactic Acid Level 0.9 mmol/L (0.4-2.0) Calcium Level 9.0 mg/dL (8.5-10.1) 8.6 mg/dL (8.5-10.1) Total Bilirubin 0.4 mg/dL (0.2-1.0) 0.4 mg/dL (0.2-1.0) Aspartate Amino Transf (AST/SGOT) 23 U/L (15-37) 23 U/L (15-37) Alanine Aminotransferase (ALT/SGPT) 31 U/L (14-59) 19 U/L (14-59) Alkaline Phosphatase 71 U/L (46-116) 59 U/L (46-116) Troponin I Quantitative < 0.017 ng/mL (0.000-0.055) KX-Sbp-N-Type Natriuretic Peptide 424 pg/mL (0-449) Total Protein 7.6 g/dL (6.4-8.2) 6.4 g/dL (6.4-8.2) Albumin 3.3 g/dL (3.4-5.0) 2.7 g/dL (3.4-5.0) Albumin/Globulin Ratio 0.8 (1.0-1.7) 0.7 (1.0-1.7) Procalcitonin < 0.10 ng/mL (0.00-0.10) Urine Collection Type Unknown Urine Color Yellow Urine Clarity Clear Urine pH 7.0 Urine Specific [place] 1.010 Urine Protein Negative mg/dL (NEG-TRACE) Urine Glucose (UA) Negative mg/dL (NEG) Urine Ketones (Stick) 15 mg/dL (NEG) Urine Blood Negative (NEG) Urine Nitrite Negative (NEG) Urine Bilirubin Negative (NEG) Urine Urobilinogen Dipstick 0.2 mg/dL (0.2 mg/dL) Urine Leukocyte Esterase Negative (NEG) Urine RBC 1-2 /HPF (0-2) Urine WBC 0 /HPF (0-4) Urine Squamous Epithelial Cells Few /LPF Urine Bacteria 0 /HPF (0-FEW) Urine Mucus Slight /LPF Laboratory Tests Test 12/10/19 04:50 White Blood Count 5.7 x10^3/uL (4.0-11.0) Red Blood Count 4.43 x10^6/uL (3.50-5.40) Hemoglobin 12.2 g/dL (12.0-15.5) Hematocrit 36.7 % (36.0-47.0) Mean Corpuscular Volume 83 fL (79-100) Mean Corpuscular Hemoglobin 28 pg (25-35) Mean Corpuscular Hemoglobin Concent 33 g/dL (31-37) Red Cell Distribution Width 15.5 % (11.5-14.5) Platelet Count 271 x10^3/uL (140-400) Neutrophils (%) (Auto) 59 % (31-73) Lymphocytes (%) (Auto) 29 % (24-48) Monocytes (%) (Auto) 12 % (0-9) Eosinophils (%) (Auto) 0 % (0-3) Basophils (%) (Auto) 0 % (0-3) Neutrophils # (Auto) 3.4 x10^3/uL (1.8-7.7) Lymphocytes # (Auto) 1.6 x10^3/uL (1.0-4.8) Monocytes # (Auto) 0.7 x10^3/uL (0.0-1.1) Eosinophils # (Auto) 0.0 x10^3/uL (0.0-0.7) Basophils # (Auto) 0.0 x10^3/uL (0.0-0.2) Sodium Level 137 mmol/L (136-145) Potassium Level 3.4 mmol/L (3.5-5.1) Chloride Level 101 mmol/L (98-107) Carbon Dioxide Level 28 mmol/L (21-32) Anion Gap 8 (6-14) Blood Urea Nitrogen 2 mg/dL (7-20) Creatinine 0.6 mg/dL (0.6-1.0) Estimated GFR (Cockcroft-Gault) 94.8 BUN/Creatinine Ratio 3 (6-20) Glucose Level 117 mg/dL (70-99) Calcium Level 8.6 mg/dL (8.5-10.1) Total Bilirubin 0.4 mg/dL (0.2-1.0) Aspartate Amino Transf (AST/SGOT) 23 U/L (15-37) Alanine Aminotransferase (ALT/SGPT) 19 U/L (14-59) Alkaline Phosphatase 59 U/L (46-116) Total Protein 6.4 g/dL (6.4-8.2) Albumin 2.7 g/dL (3.4-5.0) Albumin/Globulin Ratio 0.7 (1.0-1.7) Microbiology 12/08/19 Blood Culture - Preliminary, Resulted NO GROWTH AFTER 1 DAY Medications Current Medications Albuterol/ Ipratropium (Duoneb) 3 ml 1X ONCE NEB Last administered on 12/09/19at 00:49; Start 12/09/19 at 01:00; Stop 12/09/19 at 01:01; Status DC Albuterol/ Ipratropium (Duoneb) 3 ml 1X ONCE NEB Last administered on 12/09/19at 00:49; Start 12/09/19 at 01:00; Stop 12/09/19 at 01:01; Status DC Ondansetron HCl (Zofran) 4 mg 1X ONCE IVP Last administered on 12/09/19at 01:44; Start 12/09/19 at 02:00; Stop 12/09/19 at 02:01; Status DC Levofloxacin/ Dextrose 150 ml @ 100 mls/hr 1X ONCE IV Last administered on 12/09/19at 01:44; Start 12/09/19 at 02:00; Stop 12/09/19 at 03:29; Status DC Ondansetron HCl (Zofran) 4 mg PRN Q8HRS PRN IV NAUSEA/VOMITING 1ST CHOICE; Start 12/09/19 at 02:30; Stop 12/09/19 at 08:40; Status DC Acetaminophen (Tylenol) 650 mg PRN Q4HRS PRN PO FEVER; Start 12/09/19 at 02:30; Stop 12/09/19 at 08:40; Status DC Albuterol/ Ipratropium (Duoneb) 3 ml RTQID NEB Last administered on 12/09/19at 20:16; Start 12/09/19 at 08:00; Stop 12/10/19 at 07:59; Status DC Sodium Chloride 1,000 ml @ 100 mls/hr Q10H IV Last administered on 12/09/19at 09:55; Start 12/09/19 at 08:27; Stop 12/10/19 at 04:26; Status DC Ondansetron HCl (Zofran) 4 mg PRN Q4HRS PRN IV NAUSEA/VOMITING Last administered on 12/09/19at 18:25; Start 12/09/19 at 08:30 Zolpidem Tartrate (Ambien) 5 mg PRN QHS PRN PO INSOMNIA; Start 12/09/19 at 08:30 Acetaminophen (Tylenol) 650 mg PRN Q4HRS PRN PO TEMP OVER 100.4F OR MILD PAIN; Start 12/09/19 at 08:30 Albuterol Sulfate (Ventolin Neb Soln) 2.5 mg PRN Q4HRS PRN NEB SHORTNESS OF BREATH; Start 12/09/19 at 08:30; Stop 12/10/19 at 14:53; Status DC Guaifenesin (Robitussin) 200 mg PRN Q4HRS PRN PO COUGH; Start 12/09/19 at 08:30 Lorazepam (Ativan) 0.5 mg PRN Q4HRS PRN PO ANXIETY / AGITATION; Start 12/09/19 at 08:30 Enoxaparin Sodium (Lovenox 40mg Syringe) 40 mg Q24H SQ Last administered on 12/10/19at 16:27; Start 12/09/19 at 14:00 Albuterol Sulfate (Ventolin Neb Soln) 8.5 mg Q4H INH ; Start 12/09/19 at 08:30; Stop 12/09/19 at 08:41; Status DC Atorvastatin Calcium (Lipitor) 40 mg QHS PO Last administered on 12/09/19at 20:15; Start 12/09/19 at 21:00 Metoprolol Tartrate (Lopressor) 50 mg BID PO Last administered on 12/10/19at 09:13; Start 12/09/19 at 09:00 Pantoprazole Sodium (Protonix) 40 mg DAILYAC PO Last administered on 12/10/19at 09:13; Start 12/09/19 at 09:00 Guaifenesin (Mucinex) 600 mg BID PO Last administered on 12/10/19at 09:14; Start 12/09/19 at 09:00 Albuterol Sulfate (Ventolin Neb Soln) 8.5 mg Q4HRS INH Last administered on 12/10/19at 08:12; Start 12/09/19 at 12:00; Stop 12/10/19 at 11:48; Status DC Amlodipine Besylate (Norvasc) 2.5 mg DAILY PO Last administered on 12/10/19at 11:41; Start 12/10/19 at 11:00 Albuterol Sulfate (Ventolin Neb Soln) 2.5 mg PRN Q4HRS PRN INH SHORTNESS OF BREATH; Start 12/10/19 at 11:45 Albuterol/ Ipratropium (Duoneb) 3 ml RTQID NEB Last administered on 12/10/19at 16:31; Start 12/10/19 at 12:00 Active Scripts Active Reported Amlodipine Besylate 2.5 Mg Tablet 2.5 Mg PO DAILY Proair Hfa Inhaler (Albuterol Sulfate) 8.5 Gm Hfa.aer.ad 2 Puff IH PRN Q4-6HRS Omeprazole 40 Mg Capsule.dr 1 Cap PO DAILY Metoprolol Tartrate 50 Mg Tablet 1 Tab PO BID Levofloxacin 500 Mg Tablet 1 Tab PO DAILY Atorvastatin Calcium 40 Mg Tablet 1 Tab PO DAILY Amox Tr-K Clv 875-125 Mg Tab (Amoxicillin/Potassium Clav) 1 Each Tablet 1 Tab PO BID Vitals/I & O Vital Sign - Last 24 Hours 12/09/19 12/09/19 12/09/19 12/09/19 16:44 17:01 19:30 19:30 Pulse Ox 94 O2 Delivery Room Air Nasal Cannula Room Air Room Air O2 Flow Rate 2.0 2.0 2.0 12/09/19 12/09/19 12/09/19 12/09/19 20:15 20:16 20:16 23:02 Temp 98.1 98.1 Pulse 107 109 Resp 16 18 B/P (MAP) 107/73 177/73 (107) 182/81 (114) Pulse Ox 93 96 94 O2 Delivery Room Air Room Air Room Air 12/10/19 12/10/19 12/10/19 12/10/19 03:45 07:00 08:00 08:13 Temp 98.2 98.0 98.2 98.0 Pulse 88 93 Resp 18 18 B/P (MAP) 173/70 (104) 187/87 (120) Pulse Ox 94 93 94 O2 Delivery Room Air Room Air Room Air Room Air 12/10/19 12/10/19 12/10/19 12/10/19 09:13 11:00 11:41 11:49 Temp 97.8 97.8 Pulse 93 82 82 Resp 18 B/P (MAP) 187/87 162/71 (101) 162/71 Pulse Ox 97 96 O2 Delivery Room Air Room Air 12/10/19 12/10/19 15:00 16:32 Temp 97.3 97.3 Pulse 74 Resp 18 B/P (MAP) 143/51 (81) Pulse Ox 95 96 O2 Delivery Room Air Room Air Intake and Output 12/09/19 12/09/19 12/10/19 15:00 23:00 07:00 Intake Total 360 ml Output Total 1050 ml Balance 360 ml -1050 ml MG GUILLEN MD Dec 10, 2019 16:45
--- NOTE | 2019-12-10 19:04 | NUR ---
2 L of NS already infused per order.
[2019-12-10 19:20] VITALS: BP 153/58
[2019-12-10] MEDS: ATORVASTATIN CALCIUM 40 MG TABLET. PO SCH (20:31)
[2019-12-10 23:12] VITALS: BP 149/67
[2019-12-11 03:20] VITALS: BP 169/66
[2019-12-11 04:01] VITALS: BP 169/66
[2019-12-11 05:11] VITALS: BP 165/78
[2019-12-11] MEDS: PANTOPRAZOLE 40 MG TABLET.DR. PO SCH (07:22)
[2019-12-11] MEDS: IPRATRPIUM/ALBUTEROL 0.5/2.5MG 3 ML NEBU. NEB SCH (07:47)
[2019-12-11 07:52] VITALS: BP 173/69
[2019-12-11] MEDS: METOPROLOL TART IMMED RELEASE 50 MG TABLET. PO SCH (08:30)
[2019-12-11] MEDS: amLODIPine BESYLATE 5 MG TABLET PO SCH (08:30)
[2019-12-11] MEDS ORDERED: IPRA3AMP29 NEB (09:23)
[2019-12-11] MEDS ORDERED: GUAI600T47 PO (09:23)
--- NOTE | 2019-12-11 10:52 | NUR ---
SS following up with discharge planning. Script for nebulizer received. SS phoned and faxed script and referral to [facility], ; fax [phone]. Discharge order on the chart for home.
[2019-12-11 11:43] VITALS: BP 143/69
--- NOTE | 2019-12-11 12:48 | NUR ---
Discharge Note: ARMANDO NIELSON[address] [facility] Discharge instructions and discharge home medications reviewed with Patient and a copy given. All questions have been answered and understanding verbalized. The following instructions and handouts were given: how to use a nebulizer, HTN Discontinued lines and drains: IV catheter removed intact. Tele monitor removed Patient discharged to Home with self care via wheelchair
--- NOTE | 2019-12-11 16:18 | PDOC3 ---
Discharge Summary Visit Information Date of Admission: Dec 09, 2019 Date of Discharge: Dec 11, 2019 Admitting Diagnosis Comment: Acute viral infection Persistent cough Hyponatremia most likely secondary to low effective circulatory volume Hypokalemia Hypoxia resolved History of influenza A status post Tamiflu treatment Final Diagnosis Acute viral infection Persistent cough Hyponatremia most likely secondary to low effective circulatory volume Hypokalemia Hypoxia resolved History of influenza A status post Tamiflu treatment Brief Hospital Course Allergies Allergies Coded Allergies Type Severity Reaction Last Updated Verified Sulfa (Sulfonamide Antibiotics) Allergy Intermediate 12/09/19 Yes cyclobenzaprine Allergy Intermediate 12/09/19 Yes meperidine Allergy Intermediate 12/09/19 Yes morphine Allergy Intermediate 12/09/19 Yes pregabalin Allergy Intermediate 12/09/19 Yes Vital Signs Vital Signs Date Time Temp Pulse Resp B/P (MAP) Pulse Ox O2 Delivery O2 Flow Rate FiO2 12/11/19 11:43 97.4 80 18 143/69 (93) 95 Room Air 97.4 Lab Results Laboratory Tests Test 12/09/19 16:30 12/10/19 04:50 Urine Legionella Antigen Negative (Negative) White Blood Count 5.7 x10^3/uL (4.0-11.0) Red Blood Count 4.43 x10^6/uL (3.50-5.40) Hemoglobin 12.2 g/dL (12.0-15.5) Hematocrit 36.7 % (36.0-47.0) Mean Corpuscular Volume 83 fL (79-100) Mean Corpuscular Hemoglobin 28 pg (25-35) Mean Corpuscular Hemoglobin Concent 33 g/dL (31-37) Red Cell Distribution Width 15.5 % (11.5-14.5) Platelet Count 271 x10^3/uL (140-400) Neutrophils (%) (Auto) 59 % (31-73) Lymphocytes (%) (Auto) 29 % (24-48) Monocytes (%) (Auto) 12 % (0-9) Eosinophils (%) (Auto) 0 % (0-3) Basophils (%) (Auto) 0 % (0-3) Neutrophils # (Auto) 3.4 x10^3/uL (1.8-7.7) Lymphocytes # (Auto) 1.6 x10^3/uL (1.0-4.8) Monocytes # (Auto) 0.7 x10^3/uL (0.0-1.1) Eosinophils # (Auto) 0.0 x10^3/uL (0.0-0.7) Basophils # (Auto) 0.0 x10^3/uL (0.0-0.2) Sodium Level 137 mmol/L (136-145) Potassium Level 3.4 mmol/L (3.5-5.1) Chloride Level 101 mmol/L (98-107) Carbon Dioxide Level 28 mmol/L (21-32) Anion Gap 8 (6-14) Blood Urea Nitrogen 2 mg/dL (7-20) Creatinine 0.6 mg/dL (0.6-1.0) Estimated GFR (Cockcroft-Gault) 94.8 BUN/Creatinine Ratio 3 (6-20) Glucose Level 117 mg/dL (70-99) Calcium Level 8.6 mg/dL (8.5-10.1) Total Bilirubin 0.4 mg/dL (0.2-1.0) Aspartate Amino Transf (AST/SGOT) 23 U/L (15-37) Alanine Aminotransferase (ALT/SGPT) 19 U/L (14-59) Alkaline Phosphatase 59 U/L (46-116) Total Protein 6.4 g/dL (6.4-8.2) Albumin 2.7 g/dL (3.4-5.0) Albumin/Globulin Ratio 0.7 (1.0-1.7) Brief Hospital Course Admitted due to persistent cough that has been present for 7 days now. The patient was told in the emergency department initially that she had pneumonia nevertheless the patient did not have a pneumonic process on her x-ray and per calcitonin level was also checked with negative findings. The patient was kept off antibiotics during her hospital stay that lasted 2 days. She was given a flutter valve which seemed to improve her expansion and was able to expectorate her secretions. Her respiratory status and oral status was much improved reason why she was deemed appropriate for discharge on today's date. She had a good appetite CONCERNS WERE ADDRESSED TO THE BEST OF MY ABILITY SIGNS AND SYMPTOMS OF ALARM WERE DISCUSSED PRIOR TO DISMISSAL ADVISED TO FOLLOW-UP WITH HER PRIMARY CARE PHYSICIAN 1 WEEK. Physical exam for today Lungs with good inspiratory effort and coarse breath sounds much improved compared to admission Cardia vascular S1-S2 regular rhythm with no murmurs calls or rubs Discharge Information Condition at Discharge: Improved Follow Up: Weeks Disposition/Orders: D/C to Home Scheduled Albuterol Sulfate (Proair Hfa Inhaler) 8.5 Gm Hfa.aer.ad, 2 PUFF IH PRN Q4-6HRS, #1 (Reported) Entered as Reported by: JULIANNE RUSH on 08/25/15827 Last Action: Continued on 12/09/19831 by MG GUILLEN MD Amlodipine Besylate (Amlodipine Besylate) 2.5 Mg Tablet, 2.5 MG PO DAILY for HTN, (Reported) Entered as Reported by: DELFINA SIMON on 12/10/19956 Last Taken: Unknown Dose on Unknown Date & Time Last Action: Converted on 12/10/191019 by DELFINA SIMON Atorvastatin Calcium (Atorvastatin Calcium) 40 Mg Tablet, 1 TAB PO DAILY, #30 Ref 5 (Reported) Entered as Reported by: JULIANNE RUSH on 08/25/15827 Last Action: Continued on 12/09/19831 by MG GUILLEN MD Guaifenesin (Mucinex) 600 Mg Tablet.er, 600 MG PO BID for cough for 7 Days, #14 Prescribed by: MG GUILLEN MD on 12/11/19922 Ipratropium/Albuterol Sulfate (Duoneb 0.5-3(2.5) Mg/3 Ml) 3 Ml Ampul.neb, 3 ML NEB RTQID for shortness of breath for 30 Days, #120 Prescribed by: MG GUILLEN MD on 12/11/19922 Metoprolol Tartrate (Metoprolol Tartrate) 50 Mg Tablet, 1 TAB PO BID, #60 Ref 5 (Reported) Entered as Reported by: JULIANNE RUSH on 08/25/15827 Last Action: Continued on 12/09/19831 by MG GUILLEN MD Omeprazole (Omeprazole) 40 Mg Capsule.dr, 1 CAP PO DAILY, #30 Ref 3 (Reported) Entered as Reported by: JULIANNE RUSH on 08/25/15827 Last Action: Converted on 12/09/19831 by MG GUILLEN MD Discontinued Medications Amoxicillin/Potassium Clav (Amox Tr-K Clv 875-125 Mg Tab) 1 Each Tablet, 1 TAB PO BID, #20 (Reported) Entered as Reported by: JULIANNE RUSH on 08/25/15827 Last Action: HELD on 12/09/19830 by MG GUILLEN MD Levofloxacin (Levofloxacin) 500 Mg Tablet, 1 TAB PO DAILY, #7 (Reported) Entered as Reported by: JULIANNE RUSH on 08/25/15827 Last Action: HELD on 12/09/19830 by MD WILMER MCBRIDE HECTOR M MD Dec 11, 2019 16:18
== END 2019-12-11 11:49 | disposition home or self-care (01) | DRG 866 ==
LOC: ER 22:10 → ED HOLD 12-09 02:26 → OBSVTOIN 12-09 14:53 → 6 SOUTH 12-09 15:28
PROVIDERS: ADMIT Internal Medicine; ATTEND Internal Medicine
DX: B34.9 Viral infection, unspecified (principal); E87.1 Hypo-osmolality and hyponatremia; E87.6 Hypokalemia; E78.5 Hyperlipidemia, unspecified; I10 Essential (primary) hypertension; R09.02 Hypoxemia; Z88.2 Allergy status to sulfonamides; Z88.8 Allergy status to other drugs, medicaments and biological substances; Z79.899 Other long term (current) drug therapy
CPT/HCPCS: 36415; 71045; 80053; 81001; 83605; 83880; 84145; 84484; 85025; 87040; 87449; 93005; 94640; 94667; 94668; 94760; 99285; G0378; G0379; J1650; J1956; J2405; J7030; J7613; J7620